=== PATIENT | male | born 1970 | race Two or more races ===

== ENCOUNTER 2018-02-22 20:40 | Inpatient (IN) | payer SELFPAY ==
[~2018-02-22] VITALS: Ht 180.3 cm; Wt 106.2 kg
[2018-02-22] MEDS ORDERED: DIPHENHYDRAMINE 50MG/ML VIAL IV ONE (21:45)
[2018-02-22] MEDS ORDERED: METHYLPREDNISOLONE SOD SUCC 125 MG/2 ML VIAL IV ONE (21:45)
[2018-02-22] MEDS ORDERED: MORPHINE SULFATE 4 MG/ML CPJ (NOT FOR IM USE) IV ONE (22:00)
[2018-02-22 23:15] LABS: BASOPHILS % 1.1 % (0.0-2.0); EOSINOPHILS % 1.3 % (0.0-5.0); HEMATOCRIT. 37.8 % (42.0-52.0); HEMOGLOBIN. 12.7 g/dL (14.0-18.0); LYMPHOCYTES % 15.9 % (20.0-50.0); MEAN CORPUSCULAR HEMOGLOBIN 23.8 pg (28.0-32.0); MEAN PLATELET VOLUME 8.6 fl (7.4-10.4); MONOCYTES % 6.6 % (2.0-8.0); NEUTROPHILS % 75.1 % (40.0-76.0); PLATELET 160 x1000/uL (130-400); RED BLOOD CELL COUNT 5.33 mill/uL (4.7-6.1); RED CELL DISTRIBUTION WIDTH 27.1 % (11.6-14.6)
[2018-02-22 23:22] LABS: INR 2.5; PROTHROMBIN TIME 25.6 sec (9.4-11.6)
[2018-02-23 00:16] LABS: CHLORIDE 108 mEq/L (98-107)
[2018-02-23 00:17] LABS: PLATELET ESTIMATE NORMAL
[2018-02-23] MEDS ORDERED: ENOXAPARIN 120MG/0.8ML SYR SUBCUT ONE (01:45)
[2018-02-23] MEDS ORDERED: WARFARIN SODIUM 7.5MG TABLET PO ONE (01:45)
[2018-02-23] MEDS ORDERED: WARF7.5T22 PO (02:54)
[2018-02-23 02:57] VITALS: BP 116/72
[2018-02-23 02:59] VITALS: BP 116/72
[2018-02-23] MEDS ORDERED: MORPHINE SULFATE 4 MG/ML CPJ (NOT FOR IM USE) IV PRN (06:15)
[2018-02-23 08:00] VITALS: BP 108/67
[2018-02-23] MEDS ORDERED: ENOXAPARIN 100MG/ML SYR SUBCUT SCH (09:00)
[2018-02-23] MEDS ORDERED: PANTOPRAZOLE 40MG DR TABLET PO NR (10:15)
[2018-02-23] MEDS: MORPHINE SULFATE 4 MG/ML CPJ (NOT FOR IM USE) IV PRN ×3 (10:45→19:47)
[2018-02-23 12:17] VITALS: BP 108/68
[2018-02-23 13:31] LABS: HEMOGLOBIN. 12.7 g/dL (14.0-18.0); MEAN CORPUSCULAR HEMOGLOBIN 23.8 pg (28.0-32.0); MEAN PLATELET VOLUME 8.6 fl (7.4-10.4); PLATELET 174 x1000/uL (130-400); RED BLOOD CELL COUNT 5.35 mill/uL (4.7-6.1); RED CELL DISTRIBUTION WIDTH 27.4 % (11.6-14.6)
[2018-02-23 13:40] LABS: PROTHROMBIN TIME 21.3 sec (9.4-11.6)
[2018-02-23 13:55] LABS: CHLORIDE 105 mEq/L (98-107)
[2018-02-23 14:02] LABS: PHOSPHORUS 3.2 mg/dL (2.5-4.9)
[2018-02-23 14:11] LABS: PLATELET ESTIMATE NORMAL
[2018-02-23] MEDS ORDERED: CLONIDINE 0.1MG TABLET PO PRN (14:45)
[2018-02-23] MEDS ORDERED: DIPHENHYDRAMINE 50MG/ML VIAL IV PRN (14:45)
[2018-02-23] MEDS ORDERED: IPRATROPIUM/ALBUTEROL 0.5-3(2.5)MG/3ML NEB INH PRN (14:45)
[2018-02-23] MEDS ORDERED: ACETAMINOPHEN 325MG TABLET PO PRN (14:45)
[2018-02-23] MEDS ORDERED: ONDANSETRON HCL 4MG/2ML VIAL IV PRN (14:45)
[2018-02-23] MEDS ORDERED: ACETAMINOPHEN 650MG/20.3ML UDC GT PRN (14:45)
[2018-02-23] MEDS ORDERED: HYDROCODONE/ACETAMINOPHEN 5/325MG TABLET PO PRN (14:45)
[2018-02-23] MEDS ORDERED: MAGNESIUM/ALUMINUM HYDROXIDE/SIMETHICONE 30ML UDC PO PRN (14:45)
[2018-02-23] MEDS ORDERED: ACETAMINOPHEN 650MG SUPP PR PRN (14:45)
[2018-02-23] MEDS ORDERED: GUAIFENESIN 200MG/10ML SUGAR FREE UDC PO PRN (14:45)
[2018-02-23] MEDS ORDERED: DOCUSATE SODIUM 100MG CAPSULE PO PRN (14:45)
[2018-02-23] MEDS ORDERED: HYDROCODONE/ACETAMINOPHEN 10/325MG TABLET PO PRN (14:45)
[2018-02-23] MEDS ORDERED: NA PHOS,M-B/NA PHOS,DI-BA ENEMA 118ML PR PRN (14:45)
[2018-02-23] MEDS ORDERED: WARFARIN SODIUM 7.5MG TABLET PO NR (18:00)
[2018-02-23] MEDS ORDERED: WARFARIN SODIUM 7.5MG TABLET PO SCH (18:00)
[2018-02-23 20:00] VITALS: BP 124/71
[2018-02-23] MEDS: SODIUM CHLORIDE 0.9% INJ 3ML FLUSH IVF SCH (22:29)
[2018-02-24 05:54] VITALS: BP 124/71
[2018-02-24] MEDS: MORPHINE SULFATE 4 MG/ML CPJ (NOT FOR IM USE) IV PRN (05:54)
[2018-02-24] MEDS: SODIUM CHLORIDE 0.9% INJ 3ML FLUSH IVF SCH (05:55)
== END 2018-02-24 08:22 | disposition left against medical advice (07) | DRG 203 ==
LOC: ER 21:44 → 6WST 02-23 01:38 → EDBEDREQ 02-23 01:40 → EDBEDREQTM 02-23 01:40
PROVIDERS: ADMIT Family Medicine; ATTEND Family Medicine
DX: R07.89 Other chest pain (principal); E66.9 Obesity, unspecified; M54.9 Dorsalgia, unspecified; Z53.21 Procedure and treatment not carried out due to patient leaving prior to being seen by health care provider; Z86.711 Personal history of pulmonary embolism; Z88.8 Allergy status to other drugs, medicaments and biological substances; Z91.041 Radiographic dye allergy status; Z68.32 Body mass index [BMI] 32.0-32.9, adult; Z86.718 Personal history of other venous thrombosis and embolism
CPT/HCPCS: 36415; 80048; 80053; 83735; 84100; 84484; 85025; 85379; 85610; 85730; 93005; 93970; 96361; 96365; 96375; 99285; J1200; J1650; J2270; J2930